=== PATIENT | female | born 1970 | race Hispanic/Latino ===

== ENCOUNTER 2023-02-24 22:31 | Inpatient (IN) | payer OTHER ==
[2023-02-25 00:42] LABS: Hemoglobin 11.1 g/dL (12.0-15.5); Mean Corpuscular HGB CONC 33.4 g/dL (32.0-36.0); Mean Corpuscular Hemoglobin 31.5 pg (27.0-33.0); Mean Corpuscular Volume 94.3 fl (81.6-98.3); Platelet Count 276 10x3/uL (150-450); RBC Distribution Width 13.7 % (11.5-14.5); Red Blood Cell (RBC) Count 3.52 10x6/uL (3.90-5.03); White Blood Cell (WBC) Count 3.2 10x3/uL (3.5-10.5)
[2023-02-25 00:51] LABS: ALT (SGPT) 29 U/L (8-55); AST (SGOT) 31 U/L (5-34); Albumin 4.1 g/dL (3.5-5.0); Alkaline Phosphatase 52 U/L (40-110); Anion Gap 17 mmol/L (10-20); BUN (Urea Nitrogen) 12 mg/dL (9.8-20.1); Bilirubin, Total 0.3 mg/dL (0.2-1.2); CK (CPK) 98 U/L (29-168); Calc. Creatinine Clearance 0 mL/min (70-130); Calcium 8.6 mg/dL (7.8-10.44); Carbon Dioxide 25 mmol/L (22-29); Chloride 103 mmol/L (98-107); Estimated GFR 106; Globulin 2.5 g/dL (2.4-3.5); Glucose 89 mg/dL (70-105); Potassium 3.6 mmol/L (3.5-5.1); Protein, Total 6.6 g/dL (6.0-8.3); Sodium 141 mmol/L (136-145)
[2023-02-25 00:52] LABS: Acetaminophen Less than 10 mcg/mL (10.0-30.0); Alcohol 81.3 mg/dL (Less than 10); Lipase 20 U/L (8-78); Magnesium 1.5 mg/dL (1.6-2.6); Salicylate Less than 8.0 mg/dL (15.0-30.0)
[2023-02-25 00:52] LABS: MDiff Complete? YES
[2023-02-25 01:19] LABS: Eosinophils 1 % (0-10); Lymphocytes 26 % (21-51); Monocytes 16 % (0-10); Neutrophil 56 % (42-75)
[2023-02-25 01:20] LABS: Platelet Adequacy Comment Appears Adequate; RBC Morph Comment Within Normal Limits
[2023-02-25] MEDS ORDERED: Multivitamins, Adult 10 ML, Thiamine HCl 100 MG, Folic Acid 1 MG in Dextrose 5 %-0.45 %... IV SCH (01:30)
[2023-02-25 02:15] LABS: Amphetamine Not Detected (NotDetected); Barbiturates Screen Detected (NotDetected); Benzodiazepine Screen Detected (NotDetected); Cocaine Metabolite Screen Not Detected (NotDetected); Methadone Not Detected (NotDetected); Methamphetamine Not Detected (NotDetected); Opiate Screen Not Detected (NotDetected); Oxycodone Screen Not Detected (NotDetected); Phencyclidine (PCP) Not Detected (NotDetected); THC/Cannabinoid Screen Not Detected (NotDetected); Tricyclic Screen Detected (NotDetected)
[2023-02-25] MEDS ORDERED: Guaifenesin DM 100-10/5 ML UDCUP PO PRN (02:24)
[2023-02-25] MEDS ORDERED: Senokot S 8.6-50 MG TAB PO PRN (02:24)
[2023-02-25] MEDS ORDERED: Ondansetron PF 4 MG/2 ML Vial IVP PRN (02:24)
[2023-02-25] MEDS ORDERED: Calcium Carbonate 500 MG ChewTAB PO PRN (02:24)
[2023-02-25] MEDS ORDERED: Acetaminophen 325 MG TAB PO PRN (02:24)
[2023-02-25] MEDS ORDERED: Lorazepam 2 MG/ML VIAL SLOW IVP PRN (02:26)
[2023-02-25] MEDS ORDERED: traZODone HCl 50 MG TAB PO PRN (02:30)
[2023-02-25 03:47] VITALS: BMI 24.7
[2023-02-25] MEDS ORDERED: Potassium Chloride 20 MEQ TAB PO SCH (04:00)
[2023-02-25] MEDS: Lorazepam 2 MG/ML VIAL SLOW IVP SCH ×5 (04:01→22:18)
[2023-02-25 04:21] LABS: ALT (SGPT) 27 U/L (8-55); AST (SGOT) 29 U/L (5-34); Albumin 3.9 g/dL (3.5-5.0); Alkaline Phosphatase 53 U/L (40-110); Anion Gap 13 mmol/L (10-20); BUN (Urea Nitrogen) 11 mg/dL (9.8-20.1); Bilirubin, Total 0.5 mg/dL (0.2-1.2); Calc. Creatinine Clearance 106 mL/min (70-130); Calcium 8.4 mg/dL (7.8-10.44); Carbon Dioxide 27 mmol/L (22-29); Chloride 105 mmol/L (98-107); Estimated GFR 106; Globulin 2.5 g/dL (2.4-3.5); Glucose 96 mg/dL (70-105); Magnesium 2.2 mg/dL (1.6-2.6); Phosphorus 3.3 mg/dL (2.3-4.7); Potassium 3.7 mmol/L (3.5-5.1); Protein, Total 6.4 g/dL (6.0-8.3); Sodium 141 mmol/L (136-145)
[2023-02-25 04:43] LABS: Hemoglobin 11.3 g/dL (12.0-15.5); Mean Corpuscular HGB CONC 33.6 g/dL (32.0-36.0); Mean Corpuscular Hemoglobin 31.7 pg (27.0-33.0); Mean Corpuscular Volume 94.1 fl (81.6-98.3); Platelet Count 262 10x3/uL (150-450); RBC Distribution Width 13.5 % (11.5-14.5); Red Blood Cell (RBC) Count 3.57 10x6/uL (3.90-5.03)
[2023-02-25 04:48] LABS: MDiff Complete? YES
[2023-02-25 04:53] LABS: Band 8 % (5-11); Eosinophils 3 % (0-10); Lymphocytes 24 % (21-51); Monocytes 14 % (0-10); Neutrophil 49 % (42-75)
[2023-02-25 04:55] LABS: Platelet Adequacy Comment Appears Adequate; RBC Morph Comment Within Normal Limits
[2023-02-25] MEDS: Nicotine 14 MG PATCH TD SCH ×2 (06:30→06:37)
[2023-02-25] MEDS: Carbidopa/Levodopa 25-100 mg Tablet PO SCH ×3 (08:45→21:04)
[2023-02-25] MEDS: Multivitamin W/ Minerals 1 TAB PO SCH (08:45)
[2023-02-25] MEDS: Famotidine 20 MG TAB PO SCH ×2 (08:46→21:04)
[2023-02-25] MEDS: chlordiazePOXIDE HCl 5 MG CAP PO SCH ×3 (08:48→21:03)
[2023-02-25] MEDS: Folic Acid 1 MG TAB PO SCH (08:48)
[2023-02-25] MEDS: Pregabalin 50 MG CAP PO SCH ×3 (08:48→21:04)
[2023-02-25] MEDS: Thiamine 100 MG TAB PO SCH (08:49)
[2023-02-25] MEDS ORDERED: [UNRECOGNIZED DRUG - OTHER] PO SCH (09:00)
[2023-02-25] MEDS: QUEtiapine 100 MG TAB PO SCH ×2 (09:01→15:33)
[2023-02-25] MEDS: Dextrose 5 %-0.45 % NaCl 1,000 ML IV SCH (14:28)
[2023-02-25] MEDS ORDERED: Lorazepam 1 MG TAB PO PRN (15:57)
[2023-02-25] MEDS: traZODone HCl 150 MG TAB PO SCH (21:03)
[2023-02-25] MEDS: Gabapentin 300 MG CAP PO SCH (21:04)
[2023-02-26] MEDS: Dextrose 5 %-0.45 % NaCl 1,000 ML IV SCH ×4 (01:32→18:00)
[2023-02-26] MEDS: Lorazepam 2 MG/ML VIAL SLOW IVP SCH ×6 (04:47→21:44)
[2023-02-26 05:00] LABS: #Eosinphils 0.1 10x3/uL (0.0-0.5); #Monocytes 0.5 10x3/uL (0.0-1.1); #Neutrophils 1.6 10x3/uL (1.5-8.4); %Basophils 1.2 % (0.0-2.0); %Eosinophils 4.2 % (0.0-6.0); %Lymphocytes 32.7 % (18.0-47.0); %Monocytes 13.7 % (0.0-10.0); %Neutrophils 47.9 % (40.0-75.0); Hemoglobin 11.5 g/dL (12.0-15.5); Mean Corpuscular Hemoglobin 31.9 pg (27.0-33.0); Mean Corpuscular Volume 96.4 fl (81.6-98.3); Mean Platelet Volume 9.7 fl (7.4-10.4); Platelet Count 274 10x3/uL (150-450); RBC Distribution Width 13.2 % (11.5-14.5); Red Blood Cell (RBC) Count 3.61 10x6/uL (3.90-5.03); White Blood Cell (WBC) Count 3.4 10x3/uL (3.5-10.5)
[2023-02-26] MEDS: Nicotine 14 MG PATCH TD SCH (05:44)
[2023-02-26] MEDS: Famotidine 20 MG TAB PO SCH ×2 (08:22→20:30)
[2023-02-26] MEDS: Gabapentin 300 MG CAP PO SCH ×3 (08:23→20:29)
[2023-02-26] MEDS: chlordiazePOXIDE HCl 5 MG CAP PO SCH ×3 (08:23→20:29)
[2023-02-26] MEDS: Venlafaxine HCl XR 75 MG CAP PO SCH (08:23)
[2023-02-26] MEDS: Folic Acid 1 MG TAB PO SCH (08:23)
[2023-02-26] MEDS: Pregabalin 50 MG CAP PO SCH ×3 (08:24→20:30)
[2023-02-26] MEDS: Multivitamin W/ Minerals 1 TAB PO SCH (08:50)
[2023-02-26] MEDS: Thiamine 100 MG TAB PO SCH (08:51)
[2023-02-26] MEDS: QUEtiapine 100 MG TAB PO SCH (09:36)
[2023-02-26] MEDS: Carbidopa/Levodopa 25-100 mg Tablet PO SCH ×3 (09:46→20:28)
[2023-02-26] MEDS: traZODone HCl 150 MG TAB PO SCH (20:29)
[2023-02-27] MEDS: Lorazepam 2 MG/ML VIAL SLOW IVP SCH ×3 (01:02→12:10)
[2023-02-27] MEDS: Dextrose 5 %-0.45 % NaCl 1,000 ML IV SCH ×2 (04:34→20:33)
[2023-02-27] MEDS: Nicotine 14 MG PATCH TD SCH (06:07)
[2023-02-27] MEDS: Venlafaxine HCl XR 75 MG CAP PO SCH (08:28)
[2023-02-27] MEDS: chlordiazePOXIDE HCl 5 MG CAP PO SCH ×3 (08:29→20:39)
[2023-02-27] MEDS: Thiamine 100 MG TAB PO SCH (08:29)
[2023-02-27] MEDS: Folic Acid 1 MG TAB PO SCH (08:29)
[2023-02-27] MEDS: Gabapentin 300 MG CAP PO SCH ×3 (08:32→20:39)
[2023-02-27] MEDS: Famotidine 20 MG TAB PO SCH ×2 (08:32→20:38)
[2023-02-27] MEDS: Multivitamin W/ Minerals 1 TAB PO SCH (08:32)
[2023-02-27] MEDS: Pregabalin 50 MG CAP PO SCH ×3 (08:32→20:39)
[2023-02-27] MEDS: Carbidopa/Levodopa 25-100 mg Tablet PO SCH ×3 (08:35→20:37)
[2023-02-27] MEDS: QUEtiapine 100 MG TAB PO SCH (10:30)
[2023-02-27] MEDS ORDERED: RIMEGEPANT SULFATE 75 MG PO PRN (15:50)
[2023-02-27] MEDS: traZODone HCl 150 MG TAB PO SCH (20:38)
[2023-02-27] MEDS: Benzonatate 100 MG CAP PO SCH (21:01)
[2023-02-28 04:41] LABS: #Basophils 0.1 10x3/uL (0.0-0.2); #Eosinphils 0.2 10x3/uL (0.0-0.5); #Monocytes 0.5 10x3/uL (0.0-1.1); #Neutrophils 3.9 10x3/uL (1.5-8.4); %Basophils 0.8 % (0.0-2.0); %Eosinophils 2.8 % (0.0-6.0); %Lymphocytes 23.5 % (18.0-47.0); %Monocytes 7.9 % (0.0-10.0); %Neutrophils 64.3 % (40.0-75.0); Hemoglobin 12.1 g/dL (12.0-15.5); Mean Corpuscular HGB CONC 33.3 g/dL (32.0-36.0); Mean Corpuscular Hemoglobin 31.8 pg (27.0-33.0); Mean Corpuscular Volume 95.3 fl (81.6-98.3); Mean Platelet Volume 9.6 fl (7.4-10.4); Platelet Count 314 10x3/uL (150-450); RBC Distribution Width 13.2 % (11.5-14.5); Red Blood Cell (RBC) Count 3.81 10x6/uL (3.90-5.03)
[2023-02-28 04:53] LABS: ALT (SGPT) 8 U/L (8-55); AST (SGOT) 26 U/L (5-34); Albumin 4.1 g/dL (3.5-5.0); Alkaline Phosphatase 55 U/L (40-110); Anion Gap 13 mmol/L (10-20); BUN (Urea Nitrogen) 12 mg/dL (9.8-20.1); Bilirubin, Total 0.6 mg/dL (0.2-1.2); Calc. Creatinine Clearance 90 mL/min (70-130); Calcium 9.6 mg/dL (7.8-10.44); Carbon Dioxide 26 mmol/L (22-29); Chloride 104 mmol/L (98-107); Estimated GFR 99; Globulin 2.7 g/dL (2.4-3.5); Glucose 92 mg/dL (70-105); Potassium 3.7 mmol/L (3.5-5.1); Protein, Total 6.8 g/dL (6.0-8.3); Sodium 139 mmol/L (136-145)
[2023-02-28] MEDS: Nicotine 14 MG PATCH TD SCH (05:03)
[2023-02-28] MEDS: Thiamine 100 MG TAB PO SCH (08:18)
[2023-02-28] MEDS: Pregabalin 50 MG CAP PO SCH ×3 (08:18→20:41)
[2023-02-28] MEDS: chlordiazePOXIDE HCl 5 MG CAP PO SCH ×3 (08:18→20:41)
[2023-02-28] MEDS: QUEtiapine 100 MG TAB PO SCH (08:18)
[2023-02-28] MEDS: Venlafaxine HCl XR 75 MG CAP PO SCH (08:18)
[2023-02-28] MEDS: Folic Acid 1 MG TAB PO SCH (08:18)
[2023-02-28] MEDS: Multivitamin W/ Minerals 1 TAB PO SCH (08:19)
[2023-02-28] MEDS: Gabapentin 300 MG CAP PO SCH ×3 (08:19→20:48)
[2023-02-28] MEDS: Famotidine 20 MG TAB PO SCH ×2 (08:19→20:41)
[2023-02-28] MEDS: Carbidopa/Levodopa 25-100 mg Tablet PO SCH ×3 (08:20→20:40)
[2023-02-28] MEDS: Benzonatate 100 MG CAP PO SCH ×3 (08:24→20:41)
[2023-02-28] MEDS: traZODone HCl 150 MG TAB PO SCH (20:46)
[2023-03-01] MEDS: Nicotine 14 MG PATCH TD SCH (06:07)
[2023-03-01] MEDS: Famotidine 20 MG TAB PO SCH (08:13)
[2023-03-01] MEDS: Benzonatate 100 MG CAP PO SCH (08:13)
[2023-03-01] MEDS: QUEtiapine 100 MG TAB PO SCH (08:14)
[2023-03-01] MEDS: Folic Acid 1 MG TAB PO SCH (08:14)
[2023-03-01] MEDS: Carbidopa/Levodopa 25-100 mg Tablet PO SCH (08:14)
[2023-03-01] MEDS: Multivitamin W/ Minerals 1 TAB PO SCH (08:15)
[2023-03-01] MEDS: Gabapentin 300 MG CAP PO SCH (08:16)
[2023-03-01] MEDS: Venlafaxine HCl XR 75 MG CAP PO SCH (08:17)
[2023-03-01] MEDS: chlordiazePOXIDE HCl 5 MG CAP PO SCH (08:17)
[2023-03-01] MEDS: Pregabalin 50 MG CAP PO SCH (08:17)
[2023-03-01] MEDS: Thiamine 100 MG TAB PO SCH (08:19)
[2023-03-01 12:02] VITALS: BP 113/71; TEMP 98.3
== END 2023-03-01 14:45 | disposition home or self-care (01) | DRG 897 ==
LOC: CSHERS 22:31 → CSHTELE 02-25 03:19 → CSHIMCU 02-26 07:59
PROVIDERS: ADMIT Student in an Organized Health Care Education/Training Program; ATTEND Family Medicine
DX: F10.139 Alcohol abuse with withdrawal, unspecified (principal); G35 Multiple sclerosis; G20 Parkinson's disease; E83.42 Hypomagnesemia; F41.9 Anxiety disorder, unspecified; F32.A Depression, unspecified; D64.9 Anemia, unspecified; F10.129 Alcohol abuse with intoxication, unspecified; Z90.710 Acquired absence of both cervix and uterus; Z98.890 Other specified postprocedural states
CPT/HCPCS: 36415; 51701; 80053; 80306; 80307; 82550; 82607; 83690; 83735; 84100; 85025; 93005; 93010; 96374; 96375; 99284; J1650; J2060; J3411; J7042